=== PATIENT | male | born 1980 | race American Indian/Alaskan Native ===

== ENCOUNTER 2024-12-06 07:54 | Emergency (ER) | payer SELFPAY ==
[~2024-12-06] VITALS: Ht 177.8 cm; Wt 92.0 kg
[2024-12-06] MEDS ORDERED: ASPIRIN 81 MG CHEW PO ONE (08:00)
[2024-12-06 08:44] LABS: BASOPHILS 0.3 % (0.2-1.2); EOSINOPHILS 1.0 % (0.8-7.0); LYMPHOCYTES 22.3 % (21.8-53.1); MCH 31.5 PG (25.7-32.2); MCHC 34.3 g/dL (32.3-36.5); MCV 91.8 fL (79.0-92.2); MONOCYTES 9.7 % (5.3-12.2); NEUTROPHILS 66.5 % (34.0-67.9); RBC 4.73 M/uL (4.63-6.08)
[2024-12-06 09:03] LABS: ALT (SGPT) 31 U/L (14-59); AST (SGOT) 17 U/L (15-37); GLOMERULAR FILTRATION RATE,EST 69 mL/min (>60); PROTEIN, TOTAL 7.6 g/dL (6.4-8.2); UREA NITROGEN 18 mg/dL (7-18)
[2024-12-06 10:35] VITALS: BP 133/101
--- NOTE | 2024-12-06 22:35 | EKG ---
[facility] [address] [facility] [place] [address] Signed Normal sinus rhythm Normal ECG When compared with ECG of 25-FEB-2023 15:55, No significant change was found Confirmed by Edenilson Johnson MD () on 12/06/2024 10:35:19 PM Electronically Signed By: EDENILSON JOHNSON MD 12/06/[id number] PATIENT NAME: DAFNE SOLIS Electrocardiogram DATE OF : 80 PHYSICIAN: EDENILSON JOHNSON MD REPORT #: [id number] REPORT IS CONFIDENTIAL AND NOT TO BE RELEASED WITHOUT AUTHORIZATION
== END 2024-12-06 10:31 | disposition home or self-care (01) ==
LOC: ED 07:54
PROVIDERS: Emergency Medicine
DX: R07.89 Other chest pain (principal); Z88.0 Allergy status to penicillin
CPT/HCPCS: 36415; 71045; 80053; 83735; 84484; 85025; 93005; 93010; 99285-25; A9270